=== PATIENT | female | born 1955 | race Caucasian/White ===

== ENCOUNTER → 2017-01-31 | Outpatient (CLI) | payer OTHER ==
--- NOTE | 2017-02-01 06:22 | PAP/PSG TECHNICIAN REPORT ---
[facility] Parking Lot Chauffeur Polysomnogram Report Study name: None Report date: 02/01/2017 Study date: 01/31/2017 Referring Physician: CHARLA VEGA Name: FIGUEROA ARCE Interpreting Physician: David Figueroa M.D. Date of : 1955 Parking Lot Chauffeur: Yael Solorio [facility]. Sex: Female Age: 61 Study Type: PSG PAP Weight: Height: 61 years, Height 5' 4" BMI: Medications: ALBUTEROL, LEVOTHYROXINE Patient History 61 yr-old female here for a new CPAP treatment study. She was found to be positive for REILLY with an AHI of 18. Her diagnostic study was on 06/13/16. She chose a Quattro Air full face mask size medium from [employer]. The test was started on room air and 4 CMH2O. ETCO2 testing was not utilized during this study. Room 1 Parameters Monitored NPSG: E1-M2, E2-M1, Fp1-M2, Fp2-M1, F3-M2, F4-M2, F4-M1, C3-M2, C4-M2, C4-M1, O1-M2, O2-M2, O2-M1, T3-M2, T4-M1, P3-M2, P4-M1, CHIN1, CHIN2, HR, EKG, Legs, PFLOW, SNOR, FLOW, CFLOW, Tidal Volume, THOR, ABDO, SpO2, PLTH, CPRESS, ETCO2 Wave, ETCO2, pH Sleep Architecture Sleep Stages Time at Lights Off 10:39:15 PM STAGES Time (min.) TST (%) Time at Lights On 5:44:45 AM Wake 12.0 -- Total Recording Time (TRT) 425.50 min. N1 29.5 7 Total Sleep Period (TSP) 416.5 min. N2 222.5 54 Total Sleep Time (TST) 413.5min. N3 39.5 10 Awake Time 12.0 min. REM 122.0 30 Wake after Sleep Onset 3.0 min. Sleep Efficiency (SE) 97 % Sleep Onset Latency (MICHELLE) 9.0 min. Number of Stage 1 Shifts None Awakenings 4 Stage Changes 45 Number of REM periods 5 REM 122.0 30 REM Latency 91.5 min. NREM 291.5 70 Body Position Analysis Supine Right Left Side Prone Vertical Total Sleep Time (min.) 419.2 0.0 0.0 0.00 0.0 0.0 Total Sleep Time (%) 100% 0% 0% 0 0% N/A% Total Sleep Time REM (min.) 122.0 0.0 0.0 None 0.0 0.0 Total Sleep Time NREM (min.) 291.5 0.0 0.0 None 0.0 0.0 Intermittent Wake (min.) 5.7 6.3 0.0 None 0.0 0.0 Total Sleep Period (%) 100% None None None None None Arousals Myoclonus (PLM) * Events Count Index Events Count Index Spontaneous 11 2 Events Awake (PLMW) 3 15.0 Respiratory 11 1.6 Events Asleep w/ Arousal (PLMA) 10 1.5 PLM 10 1 Events Asleep w/o Arousal (PLMS) 123 17.8 Snoring 4 1 Total Asleep 133 19.3 Total 36 5 Total 136 19 Respiratory Analysis * CA OA MA CH H RERA Total Count 15 4 0 0 68 3 87 Index 2.2 0.6 0.0 0 9.9 0 13.1 Mean Duration 14.9 14.8 0.0 0.00 19.0 18.2 18.1 Longest Duration 20.1 17.0 0.0 0.00 0.0 20.0 34.5 Respiratory Event Summary Total Supine ~Supine Right Left Prone REM NREM Apneas Count 19 19 N/A N/A N/A N/A 9 10 Index 2.8 3 N/A N/A N/A N/A 4 2 Hypopneas (4% Desat) Count 68 68 N/A N/A N/A N/A 37 31 Index 9.9 9.9 N/A N/A N/A N/A 18.2 6.4 Apneas & All Hypopneas Count 87 87 N/A N/A N/A N/A 46 41 Index 12.6 13 N/A N/A N/A N/A 22.6 8.4 Respiratory Events (Mixer Machine Feeder+All Hyp+RERA) Count 87 90 N/A N/A N/A N/A 46 41 Index 13.1 13 N/A N/A N/A N/A 22.6 9.1 Respiratory Related Arousal Count 11 90 N/A N/A N/A N/A 2 9 Index 1.6 2 N/A N/A N/A N/A 1 2 Snoring Analysis Supine Right Left Prone REM NREM Total Snore duration 82.7 min Snores count 2,764 N/A N/A N/A 385 2,379 2,764 Snore mean duration 1.8 Sec Snores index 401 N/A N/A N/A 189.3 489.7 401.1 TST with snoring (%) 20.0% Desaturation Event Summary: Minimum %SpO2 Event Count Mean/Min/Max Duration(sec.) Desaturation Index % Time In Bed > 90 112 25.1 / 8.0 / 59.5 17.8 88.9 86 - 90 5 20.3 / 15.0 / 24.3 6.5 10.9 81 - 85 0 N/A 0.0 0.2 76 - 80 0 N/A 0.0 0.0 71 - 75 0 N/A 0.0 0.0 66 - 70 0 N/A 0.0 0.0 61 - 65 0 N/A 0.0 0.0 56 - 60 0 N/A 0.0 0.0 51 - 55 0 N/A 0.0 0.0 < 50 0 N/A 0.0 0.0 Total REM NREM Awake <50% 0.0 min. 0.0 min. 0.0 min. 0.0 min. 51 - 60% 0.0 min. 0.0 min. 0.0 min. 0.0 min. 61 - 70% 0.0 min. 0.0 min. 0.0 min. 0.0 min. 71 - 80% 0.0 min. 0.0 min. 0.0 min. 0.0 min. 81 - 90% 47.3 min. 17.1 min. 29.9 min. 0.4 min. 91 - 100% 377.8 min. 104.9 min. 261.6 min. 11.4 min. Average 92 92 92 93 Minimum SpO2 82 82 88 88 Desaturation Event Index 15.9 27.5 10.9 20.0 # Desat. Events below 89% 27 22 4 1 Time(%) with Saturation below 89% 1.5 1.3 0.1 0.1 Time(min.) with Saturation below 89% 6.3 5.5 0.5 0.3 Time (mins) REM (mins) NREM (mins) % of TST SpO2 Below 90% 75 43 N32 3.4 SpO2 Below 88% 11 0 0 1 Heart Rate Analysis Min (bpm) Max (bpm) Average (bpm) Awake 53 82 69 NREM 56 85 65 REM 53 75 61 Overall 53 85 64 Supplemental O2 Values Minimum O2 level: None Value Start Time End Time Parking Lot Chauffeur Comments Ms. Arce slept only in the supine position. No cardiac arrhythmias were noted. PLMs were noted. No bruxism noted. CPAP was initiated at +4 CMH2O and up-titrated to a level of +11 CMH2O, Cflex 2. A Quattro Air full face mask size medium from [employer] was used during titration She did not wake up to use the restroom during the night. Ms. Arce stated that she slept ok. The final report will be interpreted and signed by a sleep physician. The completed physician report will then be placed in the patient medical record. Therapy Event: Therapy (cm H20) 4 5 6 8 10 11 Total Time at Pressure (min.) 25.5 64.8 47.0 123.1 64.4 100.6 TST at Pressure (min.) 16.5 64.8 46.5 122.6 64.4 98.6 # Periods 1 1 1 1 1 1 Sleep Onset (min.) 9.0 0.0 0.0 0.0 0.0 0.0 REM Onset (min.) N/A N/A 10.2 72.2 36.6 0.0 Sleep Efficiency % 64 100 98 99 100 98 Wakefulness (%) 35.4 0.0 1.1 0.4 0.0 2.0 Wakefulness (min.) 9.0 0.0 0.5 0.5 0.0 2.0 NREM 1 (%) 43.2 5.4 6.4 2.0 4.7 6.5 NREM 1 (min.) 11.0 3.5 3.0 2.5 3.0 6.5 NREM 2 (%) 21.4 54.8 20.9 73.2 52.1 47.7 NREM 2 (min.) 5.5 35.5 9.8 90.1 33.6 48.0 NREM 3 (%) 0.0 39.8 20.7 3.2 0.0 0.0 NREM 3 (min.) 0.0 25.8 9.7 4.0 0.0 0.0 REM (%) 0.0 0.0 51.0 21.1 43.3 43.9 REM (min.) 0.0 0.0 24.0 26.0 27.9 44.1 # Arousals 12 2 1 8 7 6 Arousal Index 43.8 1.9 1.3 3.9 6.5 3.6 # Snore 93 688 371 1,262 216 134 Snore Index 339.2 636.7 478.4 617.4 201.2 81.5 AHI 3.6 6.5 25.8 11.7 22.4 6.7 AHI Supine 3.6 6.5 25.8 11.7 22.4 6.7 AHI Non-Supine N/A N/A N/A N/A N/A N/A NREM AHI 3.6 6.5 18.6 5.0 19.7 6.6 REM AHI N/A N/A 32.5 36.9 25.8 6.8 RDI 7.3 6.5 25.8 12.2 23.3 6.7 # Obstructive 0 0 0 3 0 1 # Central Ap 1 3 0 3 7 1 # Mixed 0 0 0 0 0 0 # Hypopneas 0 4 20 18 17 9 RERAS 1 0 0 1 1 0 Total Respiratory Events 2 7 20 25 25 11 Time Below SpO2 89.00% (min.) 0.0 0.1 2.3 1.4 2.1 0.2 Mean NREM SpO2 (%) 93 91 92 92 92 93 Mean REM SpO2 (%) N/A N/A 91 92 92 93 Mean Sleep SpO2 (%) 93 91 92 92 92 93 Min NREM SpO2 (%) 92 88 88 88 88 89 Min REM SpO2 (%) N/A N/A 84 84 82 86 Position Supine (min.) 16.5 64.8 46.5 122.6 64.4 98.6 Position Non-supine (min.) 0.0 0.0 0.0 0.0 0.0 0.0 LM Index Sleep 102.1 25.9 3.9 28.4 9.3 3.6 LM Index NREM 102.1 25.9 2.7 34.8 13.1 0.0 LM Index REM N/A N/A 5.0 4.6 4.3 8.2 Mean Heart Rate (bpm) 66 67 66 63 62 62 Min Heart Rate (bpm) 62 59 59 53 55 54
--- NOTE | 2017-02-06 10:51 | POLYSOMNOGRAPH REPORT ---
CLINICAL DATA: A 61-year-old female referred by Dr. Wilberto Tovar of [place] for a CPAP titration study. He had moderate sleep apnea documented on sleep study in June 2016 with an AHI of 18. She chose a Quattro Air full facemask size medium from [employer]. SLEEP ARCHITECTURE: Total sleep period was 416.5 minutes. Total sleep time was 413.5 minutes divided between 291.5 minutes of non-REM sleep and 122 minutes of REM sleep. Sleep onset latency was 9 minutes. REM latency was 91.5 minutes. Sleep efficiency was 97%. Wake after sleep onset was 3 minutes. Sleep consisted of stage N1 7%, N2 54%, N3 10%, and REM 30%. AROUSAL DATA: Thirty-six arousals were recorded for an index of 5 per hour. PLM DATA: Mildly elevated limb movements during sleep were noted. There were 933 limb movements during sleep noted for an index of 19.3 per hour with arousal index of 1.5 per hour. RESPIRATORY DATA: The AHI was 12.6. There were 15 central and 4 obstructive apneic episodes. The longest duration of apnea was 20.1 seconds. There were 68 hypopneic episodes. The mean duration of hypopnea was 19 seconds. OXIMETRY DATA: Nocturnal hypoxemia was seen. Oxygen cesar was 82% during REM sleep. The mean saturation was 92%. Time below 88% was 11 minutes. EKG: Heart rates ranged from 56 to 85 beats per minute. No arrhythmias were noted. [employer] AGENT'S COMMENTS: The patient slept supine. CPAP was started at 4 cm of water pressure and titrated up to 11 cm of water pressure, C-Flex setting 2, utilizing a Quattro Air full facemask size medium from [employer]. At the final pressure setting, the patient slept for 98.6 minutes with an AHI of 6.7. IMPRESSION: Moderate sleep apnea/hypopnea improved with CPAP 11 cm of water pressure, C-Flex setting 2, Quattro Air full facemask size medium from [employer]. RECOMMENDATIONS: The patient could be started on the above noted treatment regimen and seen back in followup within 90 days to document efficacy and compliance. [facility]
== END | disposition home or self-care (01) ==
LOC: C.NEUR 20:00
PROVIDERS: ATTEND Family Medicine
DX: G47.30 Sleep apnea, unspecified (principal); R53.83 Other fatigue; R06.83 Snoring; Z72.821 Inadequate sleep hygiene

== ENCOUNTER → 2017-02-16 | Outpatient (CLI) | payer OTHER ==
[~2017-02-16] VITALS: Ht 162.6 cm; Wt 104.8 kg
[2017-02-16 16:17] VITALS: BP 137/90; PULSE 80; Ht 162.6 cm; Wt 104.8 kg
== END | disposition home or self-care (01) ==
LOC: C.NEUR 14:59
PROVIDERS: ATTEND Internal Medicine Pulmonary Disease
DX: G47.33 Obstructive sleep apnea (adult) (pediatric) (principal)